=== PATIENT | female | born 1980 | race Caucasian/White ===

== ENCOUNTER 2017-08-10 08:09 | Emergency (ER) ==
[2017-08-10 08:20] VITALS: BP 137/83; TEMP 97.3; BMI 27.8
--- NOTE | 2017-08-10 08:51 | ED.PDOC ---
General ED Provider: Dr. CHRISTOPHER DURAN Chief Complaint: Dizziness Stated Complaint: Patient is a 37 year old female who comes to the Er with compalints of Dizziness since midnight Last night. State she has had nasal symptoms recently. Has not taken any decongestant for a few days. Time Seen by Physician: 08:48 Mode of Arrival: Walk-In Information Source: Patient Exam Limitations: No limitations Primary Care Provider: TASHA LI Nursing and Triage Documentation Reviewed and Agree: Yes Reviewed sepsis parameters & appropriate labs ordered?: No System Inflammatory Response Syndrome: Pulse >90 BPM Sepsis Protocol: For patient's 13 years and over: Temp is 96.8 and below OR 101 and greater Pulse >90 BPM Resp >20/minute Acutely Altered Mental Status Are patient's symptoms suggestive of a new infection, such as: -Pneumonia -Skin, Soft Tissue -Endocarditis -UTI -Bone, Joint Infection -Implantable Device -Acute Abdominal Infection -Wound Infection -Meningitis -Blood Stream Catheter Infection -Unknown System Inflammatory Response Syndrome: Not Applicable Review of Systems - Review Of Systems Constitutional: Reports: No symptoms Eyes: Reports: No symptoms Ears, Nose, Mouth, Throat: Reports: No symptoms Respiratory: Reports: No symptoms Cardiac: Reports: Lightheadedness GI: Reports: Nausea : Reports: No symptoms Musculoskeletal: Reports: No symptoms Skin: Reports: No symptoms Neurological: Reports: No symptoms Endocrine: Reports: No symptoms Hematologic/Lymphatic: Reports: No symptoms All Other Systems: Reviewed and Negative Past Medical History - Past Medical History Previously Healthy: Yes Endocrine: Reports: Other (Thyroiditis) Cardiovascular: Reports: None Respiratory: Reports: None Hematological: Reports: None Gastrointestinal: Reports: None Genitourinary: Reports: None Neuro/Psych: Reports: None Musculoskeletal: Reports: None Cancer: Reports: None Last Menstrual Period: 07/29/17 Other Pertinent Past Medical History: Vertigo - Surgical History General Surgical History: Reports: None - Family History Family History: Reports: None - Social History Smoking Status: Never smoker Hx Substance Use: No Alcohol Screening: None Physical Exam - Physical Exam Appearance: Well-appearing, No pain distress, Well-nourished Eyes: PAWAN, EOMI, Conjunctiva clear ENT: Ears normal, Nose normal, Oropharynx normal Respiratory: Airway patent, Breath sounds clear, Breath sounds equal, Respirations nonlabored Cardiovascular: RRR, Pulses normal, No rub, No murmur GI/: Soft, Nontender, No masses, Bowel sounds normal, No Organomegaly Musculoskeletal: Normal strength, ROM intact, No edema, No calf tenderness Skin: Warm, Dry, Normal color Neurological: Sensation intact, Motor intact, Reflexes intact, Cranial nerves intact, Alert, Oriented Psychiatric: Anxious Critical Care Note - Critical Care Note Total Time (mins): 0 Course - Course Vital Signs: Temp Pulse Resp BP Pulse Ox 08/10/17 08:10 97.3 F L 102 H 20 137/83 99 Departure - Departure Time of Disposition: 08:49 Disposition: HOME SELF-CARE Discharge Problem: Dizziness, Vertigo Instructions: Vertigo (ED) Condition: Stable Pt referred to PMD for follow-up: Yes Additional Instructions: Push fluids Take medications as prescribe Follow up with PCP in 3 days Prescriptions: Meclizine HCl [Antivert] 25 mg PO TID PRN #25 tablet PRN Reason: Dizziness Methylprednisolone [Medrol Dosepak] 4 mg PO DIRECTED #1 pkg Allergies/Adverse Reactions: Allergies amoxicillin trihydrate [From Augmentin] Adverse Reaction (Unverified 08/10/13 05 :33) potassium clavulanate [From Augmentin] Adverse Reaction (Unverified 08/10/13 05: 33) scopolamine Adverse Reaction (Verified 08/10/17 08:21) Home Medications: Ambulatory Orders Meclizine HCl [Antivert] 25 mg PO TID PRN #25 tablet 08/10/17 Methylprednisolone [Medrol Dosepak] 4 mg PO DIRECTED #1 pkg 08/10/17 Pantoprazole Sodium [Protonix] 20 mg PO DAILY 08/10/17 Disposition Discussed With: Patient
== END 2017-08-10 09:09 | disposition home or self-care (01) ==
LOC: ED 08:09
DX: R42 Dizziness and giddiness (principal)
CPT/HCPCS: 99282